=== PATIENT | female | born 1985 | race Caucasian/White ===

== ENCOUNTER 2017-06-27 08:03 | Inpatient (IN) | payer BC ==
[2017-06-27 08:50] LABS: Amnisure Internal Control QC ACCEPTABLE (ACCEPTABLE); Amnisure Test RUPTURE DETECTED (No Rupture)
[2017-06-27 09:06] VITALS: BMI 27.7
[2017-06-27] MEDS: Lactated Ringer's 1,000 ML IV SCH ×2 (09:53→17:00)
[2017-06-27] MEDS ORDERED: Lidocaine 1% (PF) 30 ML VIAL SC PRN (10:17)
[2017-06-27] MEDS ORDERED: Methylergonovine 0.2 MG/ML VIAL IM PRN ×2 (10:17)
[2017-06-27] MEDS ORDERED: Misoprostol 200 MCG TAB PR PRN (10:17)
[2017-06-27] MEDS ORDERED: Diphenoxylate HCl/Atropine Tablet PO PRN ×2 (10:17)
[2017-06-27] MEDS ORDERED: HYDROcodone/Acetaminophen 5/325 mg Tablet PO PRN ×3 (10:17→21:57)
[2017-06-27] MEDS ORDERED: Ondansetron HCl/PF 4 MG/2 ML Vial IVP PRN ×2 (10:17→21:57)
[2017-06-27] MEDS ORDERED: Promethazine HCl 25 MG/ML VIAL IM PRN (10:17)
[2017-06-27] MEDS ORDERED: Acetaminophen 500 MG TAB PO PRN (10:17)
[2017-06-27] MEDS ORDERED: Carboprost 250 MCG/ML AMP IM PRN (10:17)
[2017-06-27] MEDS ORDERED: Ibuprofen 800 MG TAB PO PRN (10:17)
[2017-06-27] MEDS ORDERED: LR 500 ML/Oxytocin 10 units 500 ML IV SCH ×2 (10:30→15:30)
[2017-06-27 10:38] LABS: Mean Corpuscular HGB CONC 35.8 g/dL (32.0-36.0); Mean Corpuscular Hemoglobin 34.5 pg (27.0-31.0); Mean Corpuscular Volume 96.2 fl (81.0-99.0); RBC Distribution Width 11.7 % (11.5-14.5); Red Blood Cell (RBC) Count 3.78 mill/uL (4.20-5.40); White Blood Cell (WBC) Count 7.4 thou/uL (4.8-10.8)
[2017-06-27 10:57] LABS: HBSAg Index 0.22 S/CO (0-0.99); Hep B Surf Ag Non-Reactive S/CO (NonReactive); Syphilis Antibody Nonreactive (Nonreactive); Syphilis Antibody Index 0.05 S/CO (<1.00 Non-Reactive)
[2017-06-27 11:05] LABS: Mean Platelet Volume 11.4 fL (7.4-10.4); Platelet Count 121 thou/uL (130-400)
[2017-06-27] MEDS ORDERED: Bupivacaine 0.5% 20 ML, fentaNYL Citrate/PF 400 MCG in Sodium Chloride 0.9% 72 ML EPIDURAL SCH (15:30)
[2017-06-27] MEDS ORDERED: DISCONTINUE ALL PREVIOUS NARCOTICS FS SCH (15:30)
[2017-06-27] MEDS ORDERED: Butorphanol Tartrate 1 MG/ML VIAL SLOW IVP PRN (17:03)
[2017-06-27] MEDS: LR / Pitocin 40 units/1000 ml 1,000 ML IV PRN ×2 (19:00→21:27)
[2017-06-27] MEDS ORDERED: Bisacodyl 10 MG SUPP PR PRN (21:57)
[2017-06-27] MEDS ORDERED: LR / Pitocin 40 units/1000 ml 1,000 ML IV SCH (21:57)
[2017-06-27] MEDS ORDERED: Preparation H Ointment 28 GM TUBE PR PRN (21:57)
[2017-06-27] MEDS ORDERED: diphenhydrAMINE 25 MG CAP PO PRN (21:57)
[2017-06-27] MEDS ORDERED: Acetaminophen/Codeine 30-300mg Tablet PO PRN (21:57)
[2017-06-27] MEDS ORDERED: traMADol HCl 50 MG TAB PO PRN (21:57)
[2017-06-27] MEDS ORDERED: Milk Of Magnesia 30 ML UDCUP PO PRN (21:57)
[2017-06-27] MEDS ORDERED: Benzocaine/Menthol 20-0.5% 60 ML CAN TOP PRN (21:57)
[2017-06-27] MEDS ORDERED: Lanolin Ointment 7 GM TUBE TOP PRN (21:57)
[2017-06-27] MEDS: Docusate Calcium (SURFAK) 240 MG CAP PO SCH ×2 (23:02)
[2017-06-27] MEDS: Ibuprofen 800 MG TAB PO SCH (23:02)
[2017-06-28] MEDS: Ibuprofen 800 MG TAB PO SCH ×3 (06:29→21:55)
[2017-06-28] MEDS: Ferrous Sulfate 325 MG TAB PO SCH ×2 (07:43→17:01)
[2017-06-28] MEDS: Prenatal Vitamin 1 TAB PO SCH (08:20)
[2017-06-28] MEDS: Docusate Calcium (SURFAK) 240 MG CAP PO SCH ×4 (08:20→21:55)
[2017-06-29 10:16] VITALS: BP 114/60; TEMP 98.9
[2017-06-29] MEDS: Ferrous Sulfate 325 MG TAB PO SCH (10:17)
[2017-06-29] MEDS: Ibuprofen 800 MG TAB PO SCH (10:17)
[2017-06-29] MEDS: Docusate Calcium (SURFAK) 240 MG CAP PO SCH ×2 (10:17)
[2017-06-29] MEDS: Prenatal Vitamin 1 TAB PO SCH (10:17)
== END 2017-06-29 12:19 | disposition home or self-care (01) | DRG 775 ==
LOC: L&D/OP 08:03 → L&D 09:33 → 3SW 21:28
PROVIDERS: ADMIT Family Medicine; ATTEND Family Medicine
PROC: 10E0XZZ Delivery of Products of Conception, External Approach (ICD-10-PCS; principal; 2017-06-27)
PROC: 0KQM0ZZ Repair Perineum Muscle, Open Approach (ICD-10-PCS; 2017-06-27)
DX: O70.1 Second degree perineal laceration during delivery (principal); Z37.0 Single live birth; Z3A.39 39 weeks gestation of pregnancy
CPT/HCPCS: 84112; 85027; 86780; 87340; 99285; J0595; J2001; J3010; J3490; J7050; J7120